=== PATIENT | female | born 1970 | race Caucasian/White ===

== ENCOUNTER 2023-02-11 15:08 | Emergency (ER) | payer OTHER ==
[2023-02-11 15:44] VITALS: RESP 18; BMI 49.8
[2023-02-11 16:50] LABS: BASO % 0.4 % (0-2.0); EOS % 0.2 % (0-4.5); HEMATOCRIT 39.2 % (32.4-45.2); HEMOGLOBIN 12.9 GM/dL (10.7-15.3); LYMPH % 23.5 % (8-40); MCH 26.1 pg (25.7-33.7); MCHC 32.9 g/dl (32.0-36.0); MEAN CELL VOLUME 79.2 fl (80-96); MEAN PLT VOLUME 8.8 fl (7.5-11.1); MONO % 11.1 % (3.8-10.2); NEUT % 64.8 % (42.8-82.8); PLATELET COUNT 165 10^3/uL (134-434); RBC 4.95 M/mm3 (3.60-5.2); RDW 15.3 % (11.6-15.6); WHITE BLOOD COUNT 5.1 K/mm3 (4.0-10.0)
[2023-02-11 17:16] LABS: BLOOD UREA NITROGEN 11.6 mg/dL (7-18); CALCIUM 9.1 mg/dL (8.5-10.1)
[2023-02-11 17:19] LABS: CREATININE 0.7 mg/dL (0.55-1.3)
[2023-02-11 17:21] LABS: BILIRUBIN,TOTAL 0.3 mg/dL (0.2-1)
[2023-02-11 17:52] LABS: EPI CELLS 33 /uL (0-25.1); HYALINE CASTS 9 /uL (0-3.1); PH,URINE 5.5 (5.0-8.0); URINE APPEARANCE CLEAR; URINE BILIRUBIN NEGATIVE (NEGATIVE); URINE COLOR YELLOW; URINE GLUCOSE (UA) NEGATIVE (NEGATIVE); URINE KETONE NEGATIVE (NEGATIVE); URINE LEUK ESTERASE NEGATIVE (NEGATIVE); URINE NITRITE NEGATIVE (NEGATIVE); URINE PROTEIN 1+ (NEGATIVE); URINE RBC 29 /uL (0-23.9); URINE UROBILINOGEN 0.2 mg/dL (0.2-1.0); URINE WBC 23 /uL (0-25.8)
[2023-02-11 18:17] VITALS: BP 128/63; PULSE 73; TEMP 100.7
[2023-02-11 19:15] LABS: URINE BACTERIA 38 /uL (0-1359)
== END 2023-02-11 19:26 | disposition home or self-care (01) ==
LOC: JER 15:08
DX: J09.X2 Influenza due to identified novel influenza A virus with other respiratory manifestations (principal); R55 Syncope and collapse; R09.81 Nasal congestion; M79.10 Myalgia, unspecified site; R53.1 Weakness; R11.0 Nausea; R06.00 Dyspnea, unspecified; Z20.822 Contact with and (suspected) exposure to COVID-19
CPT/HCPCS: 0241U-QW; 36415; 71045-TC-FY; 80053; 81003; 82962; 83880; 84484; 85025; 87086; 93005; 93010; 99285-25